=== PATIENT | male | born 2000 | race Two or more races ===

== ENCOUNTER 2024-01-28 17:36 | Emergency (ER) | payer MEDICAID, SELFPAY ==
--- NOTE | 2024-01-28 17:44 | EKG_ITS ---
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
[2024-01-28 18:00] VITALS: BP 142/83; PULSE 63; RESP 18; TEMP 37.1; O2SAT 98; BMI 34.8
--- NOTE | 2024-01-28 18:20 | XR_ITS ---
Examination: PA lateral chest 2 views Technique: Upright PA lateral chest 2 views Exam date and time: January 28, 2024 at 1836 hrs. Indications: Onset right-sided chest pain today Findings: Normal heart size Lungs are clear. The osseous structures are intact Impression: No active disease
--- NOTE | 2024-01-28 18:20 | PD.EDRME ---
Rapid Medical Screening Exam RME Arrival date/time: 01/28/24 17:36 23-year-old male childhood asthma presents to the emergency department complaining of right-sided chest pain/pressure that started 1 hour ago. Chief Complaint: Chest Pain Time Seen by Provider: 01/28/24 18:12 Vital signs: Vital Signs Temperature 98.8 F 01/28/24 18:00 Pulse Rate 63 01/28/24 18:00 Respiratory Rate 18 01/28/24 18:00 Blood Pressure 142/83 H 01/28/24 18:00 Pulse Oximetry (%) 98 01/28/24 18:00 Oxygen Delivery Method Room Air 01/28/24 18:00 Vital signs reviewed by provider: Yes
--- NOTE | 2024-01-28 18:32 | PD.EDCHEST ---
ED Chest Pain RME/HPI General Chief Complaint: Chest Pain Stated Complaint: CHEST PAIN Time Seen by Provider: 01/28/24 18:12 Arrival date/time: 01/28/24 17:36 Limitations: no limitations RME / HPI RME / HPI narrative: 01/28/24 17:36 23-year-old male childhood asthma presents to the emergency department complaining of right-sided chest pain/pressure that started [address] MONTALVO MAIN ED EVALUATION: 23 year old male presents to the Emergency Department with complaint of chest pressure onset 430 PM. Pain is described as pressure and rated mild to moderate in severity. Movement exacerbates the pain. He states he was working on his truck, he was under the truck and could not get up when he started having chest pain. Patient denies any shortness of breath, wheezing, or any other symptoms at this time. PMHx: Asthma as a kid. Social Hx: No tobacco, alcohol, or substance use. Related Data Previous Rx's ?Medication ?Instructions ?Recorded Sulfamethoxazole/Trimethoprim DS * 1 tab PO BID #14 tabs 11/18/13 (BACTRIM DS *) Allergies Allergy/AdvReac Type Severity Reaction Status Date / Time NKA* Allergy Uncoded 01/28/24 17:39 Review of Systems Review of Systems Systems Reviewed: All systems reviewed, normal except as documented Narrative Review of Systems: GEN: No fever, no chills, no weight loss EYES: No discharge, no visual changes, no pain HEENT: No ear pain, no congestion, no sore throat PULM: No shortness of breath, no cough, no congestion CV: + chest pressure, no dyspnea on exertion, no palpitations GI: No nausea, no vomiting, no diarrhea, no pain, no constipation : No frequency, no urgency and no dysuria MUSC/SKEL: No joint pain, no back pain SKIN: No rash PSYCH: No hallucinations, no depression HEME/LYMPH: No easy bleeding or bruising tendencies NEURO: No weakness, no headache Past Medical History Past Medical History RESPIRATORY: Positive Asthma Social History SMOKING STATUS: Never smoker SUBSTANCE USE: does not use ALCOHOL: Never ED Exam General Limitations: Present no limitations General appearance: Present alert and in no apparent distress Head Head exam: Present atraumatic, normocephalic and normal inspection Eye Eye exam: Present normal appearance, PERRL and EOMI ENT ENT exam: Present normal exam, normal oropharynx and mucous membranes moist Neck Neck exam: Present normal inspection, full ROM and trachea midline Chest Chest inspection: Present symmetric chest wall rise and tenderness (right pectoralis muscle tenderness) Respiratory Respiratory exam: Present normal lung sounds bilaterally Cardiovascular Cardiovascular exam: Present regular rate, normal rhythm and normal heart sounds Abdominal Exam Abdominal exam: Present soft and normal bowel sounds Extremities Exam Extremities exam: Present normal inspection and full ROM Back Exam Back exam: Present normal inspection and full ROM Neurological Exam Neurological exam: Present alert, oriented X3 and CN II-XII intact Psychiatric Psychiatric exam: Present normal affect and normal mood Skin Skin exam: Present warm, dry, intact and normal color Course Quality Measures none Orders Category Date Time Status EKG (ED ONLY) *Do not use* NOW Care 01/28/24 17:44 Completed EKG (ED Only) Stat Exams 01/28/24 17:44 Draft XR chest 2V Stat Exams 01/28/24 18:20 Completed B-Type Natriuretic Peptide Stat Lab 01/28/24 18:36 Completed CBC Stat Lab 01/28/24 18:36 Completed Comprehensive Metabolic Panel Stat Lab 01/28/24 18:36 Completed D-Dimer Stat Lab 01/28/24 18:36 Completed Drug Screen,Urine Stat Lab 01/28/24 19:13 Completed Magnesium Stat Lab 01/28/24 18:36 Completed Partial Thromboplastin Time Stat Lab 01/28/24 18:36 Completed Prothrombin Time with INR Stat Lab 01/28/24 18:36 Completed Troponin I Stat Lab 01/28/24 18:36 Completed Urinalysis Stat Lab 01/28/24 19:13 Completed Ketorolac Inj [Toradol Inj] Med 01/28/24 19:33 Discontinued 30 mg IM X1 ONE Vital Signs Vital signs: Vital Signs Temperature 98.8 F 01/28/24 18:00 Pulse Rate 63 01/28/24 18:00 Respiratory Rate 18 01/28/24 18:00 Blood Pressure 142/83 H 01/28/24 18:00 Pulse Oximetry (%) 98 01/28/24 18:00 Oxygen Delivery Method Room Air 01/28/24 18:00 Procedures -ED EKG Interpretation #1: Date of EK01/28/24 Time of EK:02 Rate: 51 Interpretation: Interpreted by me Additional EKG comment: sinus bradycardia, rate 51, good R wave progression, QTc is 374, no elevations, no depressions, no old EKG for comparison Chest Pain MDM Narrative MDM Narrative:: I, Allyssa Gabriel, am scribing for and in the presence of Dr. Montalvo. Patient data External records reviewed:: None (no previous visits) Clinical information provided by:: patient Social determinants that could affect healthcare access:: none Patient has the following chronic illnesses:: Asthma as a kid. How is presenting disease/condition affected by chronic disease/condition?: uneffected by Evaluation data The following diagnostics were reviewed and interpreted by me:: lab results, radiology exam(s) and EKG tracing(s) Lab and/or radiology exams considered but not ordered:: none Interpretation Summary: Procedure(s): XR chest 2V Accession Number(s): [id number] cc: Dayton Anderson MD; Orlin Larios MD; Lorena Noe ([employer])Stoney~ Examination: PA lateral chest 2 views Technique: Upright PA lateral chest 2 views Exam date and time: January 28, 2024 at 1836 hrs. Indications: Onset right-sided chest pain today Findings: Normal heart size Lungs are clear. The osseous structures are intact Impression: No active disease Dictated By: Orlin Larios MD Medications / Prescriptions Medications or Prescriptions considered but not ordered:: none Medication administrations:: Medication Administration History Discontinued Medications Ketorolac Tromethamine (Ketorolac Inj 60 Mg/2 Ml Vial) 30 mg IM X1 ONE Stop: 01/28/24 19:34 Last Admin: 01/28/24 19:55 Dose: 30 mg Documented By: OA see above Consultations Consultation(s) initiated? (list below): No Diagnosis Chest Pain Differential Diagnosis: atypical chest pain, costochondritis and chest pain Most likely diagnosis given after review of the tests above:: Atypical chest pain Admission Indicated Admission indicated?: not indicated Admission Request Was there a request for admission?: No Disposition Plan Disposition Plan: Discharge Discharge Attestation Discharge Attestation: The patient and all family members were given an opportunity to ask questions and understood the discharge instructions. Discharge instructions specifically effects, indications for sooner follow up or return to the emergency department, and the expected course of current diagnosis. Patient condition: Stable Discharge Plan Plan Patient Disposition: HOME (Self Care) Patient condition on transfer: Stable Prescriptions/Referrals Prescriptions/Med Rec: No Action Sulfamethoxazole/Trimethoprim DS * (BACTRIM DS *) 1 TAB tablet 1 tab PO BID Qty: 14 0RF Referrals: Dayton Anderson MD [Primary Care Provider] - In 1 week Problem List Clinical Impression: Atypical chest pain Patient/Caregiver Discharge Instructions Education Materials: ED Chest Pain, Noncardiac Additional Instructions: Return to the emergency department for worsening symptoms or new concerns. You can take [id number] Tylenol 650 mg 3 times a day for the next 2 to 3 days. Print Language: Moldovan Stand Alone Forms: Kailyn Award Info., Patient Portal Info Letter
[2024-01-28 19:06] LABS: Basophils % (Auto) 0 % (0-2.5); Eosinophils # (Auto) 0.4 Thou/mm3 (0.0-0.5); Eosinophils % (Auto) 5 % (0-10); Hematocrit 44.4 % (41.0-53.0); Hemoglobin 15.5 g/dL (13.5-16.0); Immature Granulocytes % (Auto) 0 % (0-0); Immature Granulocytes Auto 0.02 Thou/mm3 (0.00-0.00); Lymphocytes % (Auto) 38 % (10-50); Mean Corpuscular HGB Conc 34.9 g/dl (31.0-37.0); Mean Corpuscular Hemoglobin 30.5 pg (25.0-35.0); Mean Corpuscular Volume 87 fL (80-100); Monocytes # (Auto) 0.7 Thou/mm3 (0.0-0.8); Monocytes % (Auto) 9 % (0-12); Neutrophils # (Auto) 3.8 Thou/mm3 (1.8-7.7); Neutrophils % (Auto) 48 % (37-80); Nucleated Red Blood Cell % 0 /100 WBC (0); Platelet Count 221 Thou/mm3 (140-440); RDW Standard Deviation 39.8 fL (35.1-43.9); Red Blood Count 5.09 Miln/mm3 (4.50-5.90); White Blood Count 7.9 Thou/mm3 (3.8-10.6)
[2024-01-28 19:28] LABS: B-Type Natriuretic Peptide < 20 pg/mL (0-100)
[2024-01-28 19:29] LABS: Alanine Aminotransferase 59 U/L (10-49); Albumin, Serum 4.8 gm/dL (3.5-5.0); Albumin/Globulin Ratio 2.4 (1.2-2.2); Alkaline Phosphatase 73 U/L (46-116); Anion Gap 7 (7-16); Aspartate Amino Transferase 22 U/L (0-34); BUN/Creatinine Ratio 10 Ratio (12-20); Bilirubin,Total 0.4 mg/dL (0.3-1.2); Blood Urea Nitrogen 9 mg/dL (9-23); Calcium 9.3 mg/dL (8.3-10.6); Calcium (Corrected) 9.3 mg/dL (8.5-10.1); Carbon Dioxide 27.5 mMol/L (20.0-31.0); Chloride 105 mMol/L (98-107); Creatinine (Component) 0.9 mg/dL (0.6-1.3); Estimated Creatinine Clearance 160.7 mL/min (>60); Glucose 115 mg/dL (74-106); Magnesium 2.1 mg/dL (1.6-2.6); Osmolality,Calculated 277 (275-295); Potassium 4.1 mMol/L (3.4-5.1); Sodium 139 mMol/L (136-145); Total Protein 6.8 gm/dL (5.7-8.2); Troponin I < 0.002 ng/mL (0.0-0.045); eGFR > 60 See Note
[2024-01-28 19:32] LABS: Collection Type, Urine Clean Catch; Squamous Epithelial Cell,Urine 0 /hpf (0-5)
[2024-01-28 19:36] LABS: Partial Thromboplastin Time 30.7 Seconds (22.0-36.0); Prothrombin Time 11.2 Seconds (9.0-12.2)
[2024-01-28 19:55] LABS: D-Dimer < 250 ng/mL (<600)
[2024-01-28 19:55] LABS: Bilirubin,Urine Negative (Negative); Blood,Urine Negative (Negative); Clarity,Urine Clear (Clear/Hazy); Color,Urine Colorless (Lt Yel-Yel); Glucose, Urine Negative (Negative); Ketones,Urine Negative (Negative); Leukocyte Esterase,Urine Negative (Negative); Nitrite,Urine Negative (Negative); Protein,Urine Negative (Neg - Trace); RBC,Urine 1 /hpf (0-3); Specific Gravity,Urine 1.009 (1.001-1.035); Urobilinogen,Urine Negative mg/dL (0.0-1.0); WBC,Urine < 1 /hpf (0-5)
[2024-01-28] MEDS: KETOROLAC INJ 60 MG/2 ML VIAL 30 MG IM (19:55)
[2024-01-28 20:05] LABS: Amphetamine/Methamp Scrn,U Negative (Negative); Barbiturate Screen,Urine Negative (Negative); Benzodiazepines Screen,Urine Negative (Negative); Benzoylecgonine Screen, Ur Negative (Negative); Fentanyl Screen,Urine Negative (Negative); Opiate Screen,Urine Negative (Negative); THC Screen,Urine Negative (Negative)
== END 2024-01-28 21:07 | disposition home or self-care (01) ==
PROVIDERS: Emergency Provider Emergency Medicine; PCP Family Medicine
DX: R07.89 Other chest pain (principal); R00.1 Bradycardia, unspecified
CPT/HCPCS: 36415; 71046; 80053; 80307; 81001; 83735; 83880; 84484; 85025; 85379; 85610; 85730; 93005; 96372; 99283; J1885